=== PATIENT | male | born 1985 | race Caucasian/White ===

== ENCOUNTER 2019-07-02 10:30 | Emergency (ER) | payer MEDICAID ==
[~2019-07-02] VITALS: Ht 175.3 cm; Wt 95.3 kg
[2019-07-02 10:43] VITALS: BP 134/85
[2019-07-02] MEDS ORDERED: POLY10DR3 EACHEYE (10:45)
--- NOTE | 2019-07-02 10:45 | PHYS DOC ---
Adult General Chief Complaint Chief Complaint: EYE PROBLEMS [facility] HPI Patient is a 33 year old Male who presents with right leg redness and swelling with pain 5 out of 10 times one day. Patient denies injury to the eye. Review of Systems Review of Systems Constitutional: Denies fever or chills [] Eyes: Denies change in visual acuity, conjunctiva redness, or eye lid eye pain, eye discharge[] HENT: Denies nasal congestion or sore throat [] Respiratory: Denies cough or shortness of breath [] Cardiovascular: No additional information not addressed in HPI [] GI: Denies abdominal pain, nausea, vomiting, bloody stools or diarrhea [] : Denies dysuria or hematuria [] Musculoskeletal: Denies back pain or joint pain [] Integument: Denies rash or skin lesions [] Neurologic: Denies headache, focal weakness or sensory changes [] Endocrine: Denies polyuria or polydipsia [] All other systems were reviewed and found to be within normal limits, except as documented in this note. Physical Exam Physical Exam Constitutional: Well developed, well nourished, no acute distress, non-toxic appearance. [] HENT: Normocephalic, atraumatic, bilateral external ears normal, oropharynx moist, no oral exudates, nose normal. [] Eyes: PERRLA, EOMI, conjunctiva pink/reddened, white/clear discharge, 1+ swelling. [] Neck: Normal range of motion, no tenderness, supple, no stridor. [] Cardiovascular:Heart rate regular rhythm, no murmur [] Lungs & Thorax: Bilateral breath sounds clear to auscultation [] Abdomen: Bowel sounds normal, soft, no tenderness, no masses, no pulsatile masses. [] Skin: Warm, dry, no erythema, no rash. [] Back: No tenderness, no CVA tenderness. [] Extremities: No tenderness, no cyanosis, no clubbing, ROM intact, no edema. [] Neurologic: Alert and oriented X 3, normal motor function, normal sensory function, no focal deficits noted. [] Psychologic: Affect normal, judgement normal, mood normal. [] EKG EKG [] Radiology/Procedures Radiology/Procedures [] Course & Med Decision Making Course & Med Decision Making Patient is a 33 year old Male who presents with right leg redness and swelling with pain 5 out of 10 times one day. Patient denies injury to the eye. Alert and oriented. Vital signs within normal limits. Patient has not had any recent illness. Right eyelid is reddened and swollen 1+ and tender with palpation. Conjunctiva is pink in color. Patient states he awakens with discharge around his eye and the eyelashes. Afebrile. Patient denies any visual changes. Patient denies any injury or getting anything in the eye. Patient denies any pain of the actual eye but on the eyelid around the eye states hurts. She states the eye does itch. Alert and oriented. Patient Is given eyedrops and diagnosed with conjunctivitis. Patient to follow up with primary care provider or return to the ER if not getting better. Dragon Disclaimer Dragon Disclaimer This electronic medical record was generated, in whole or in part, using a voice recognition dictation system. Departure Departure Impression: Primary Impression: Conjunctivitis Disposition: HOME, SELF-CARE Condition: STABLE Patient Instructions: Conjunctivitis (Viral and Bacterial) Additional Instructions: Follow-up with primary care provider. Return to the ER or follow primary care provider if not getting better in the next 4-5 days. Scripts Polymyxin B Sulf/Trimethoprim (POLYMYXIN B-TMP EYE DROPS) 10 Ml Drops 1 DROP EACHEYE QID for 7 Days, #10 ML Prov: BOB DIAZ APRN 07/02/19 Problem Qualifiers Primary Impression: Conjunctivitis Conjunctivitis type: acute Acute conjunctivitis type: unspecified Laterality: right Qualified Codes: H10.31 - Unspecified acute conjunctivitis, right eye BOB DIAZ APRN Jul 02, 2019 10:45
== END 2019-07-02 11:03 | disposition home or self-care (01) ==
LOC: ER 10:30
DX: H10.31 Unspecified acute conjunctivitis, right eye (principal)
CPT/HCPCS: 99283

== ENCOUNTER 2020-02-16 09:08 | Emergency (ER) | payer MEDICAID ==
[~2020-02-16] VITALS: Ht 175.3 cm; Wt 103.0 kg
[~2020-02-16 09:08] MED LIST: POLY10DR3 EACHEYE
[2020-02-16 09:09] VITALS: BP 129/85
[2020-02-16] MEDS ORDERED: ACET-704 PO (09:24)
[2020-02-16] MEDS ORDERED: PENI500T PO (09:24)
--- NOTE | 2020-02-16 09:25 | PHYS DOC ---
Past Medical History Past Medical History: Anxiety, Depression, Hypertension Past Surgical History: No Surgical History Smoking Status: Current Every Day Smoker Alcohol Use: None Drug Use: None Adult General Chief Complaint Chief Complaint: DENTAL PROBLEM HPI HPI Patient is a 34 year old male presenting to the ED with a chief complaint of dental pain. Patient states that he has pain in the right lower jaw. Patient states that he does not have a dentist does not have a primary care physician either. Patient states that the pain was worse today and so came into the ER for antibiotic treatment. Patient denies fever, difficulty with swallowing. Review of Systems Review of Systems Patient denies fever, chills, nausea, vomiting, diarrhea, dysuria, chest pain, abdominal pain, shortness of breath. All other systems were reviewed and found to be within normal limits, except as documented in this note. Allergies Allergies Allergies Coded Allergies Type Severity Reaction Last Updated Verified No Known Drug Allergies 07/02/19 No Physical Exam Physical Exam Constitutional: Well developed, well nourished, no acute distress, non-toxic appearance. [] HENT: Normocephalic, atraumatic, dental caries in the right lower jaw Eyes: PERRLA, EOMI Neck: Normal range of motion Cardiovascular:Heart rate regular rhythm, no murmur [] Lungs & Thorax: Bilateral breath sounds clear to auscultation [] Abdomen: Bowel sounds normal, soft, no tenderness Extremities: No tenderness, ROM intact Neurologic: Alert and oriented X 3 Current Patient Data Vital Signs Vital Signs Date Time Temp Pulse Resp B/P (MAP) Pulse Ox O2 Delivery O2 Flow Rate FiO2 02/16/20 09:09 97.9 99 16 129/85 (100) 98 Room Air 97.9 EKG EKG [] Radiology/Procedures Radiology/Procedures [] Course & Med Decision Making Course & Med Decision Making Patient will be treated with oral antibiotics and pain medication. Patient is instructed to follow-up with dentist as soon as possible. Vital signs are stable. Discussed plan of care with patient. Patient is instructed to follow up with PCP in one to 2 days. Appropriate discharge instructions given to patient to return to the ED or to seek immediate medical evaluation. Patient is instructed to return to the ED if symptoms worsen or if any concerns. Dragon Disclaimer Dragon Disclaimer This electronic medical record was generated, in whole or in part, using a voice recognition dictation system. Departure Departure Impression: Primary Impression: Dental caries Disposition: HOME, SELF-CARE Condition: STABLE Referrals: NO PCP (PCP) Patient Instructions: Dental Caries Additional Instructions: Discussed plan of care with patient. Patient is instructed to follow up with PCP and dentist in one to 2 days. Appropriate discharge instructions given to patient to return to the ED or to seek immediate medical evaluation. Patient is instructed to return to the ED if symptoms worsen or if any concerns. Scripts Acetaminophen With Codeine (TYLENOL WITH CODEINE #3 TABLET) 1 Each Tablet 1 TAB PO PRN BID PRN for pain MDD 2 Tablet(s) for 5 Days, #15 TAB 0 Refills Prov: TITUS MELENDEZ DO 02/16/20 Penicillin V Potassium (PENICILLIN V POTASSIUM) 500 Mg Tablet 1 TAB PO QID for 10 Days, #40 TAB Prov: TITUS MELENDEZ DO 02/16/20 TITUS MELENDEZ DO Feb 16, 2020 09:25
== END 2020-02-16 09:30 | disposition home or self-care (01) ==
LOC: ER 09:08
DX: K02.9 Dental caries, unspecified (principal); K08.89 Other specified disorders of teeth and supporting structures; R68.84 Jaw pain; I10 Essential (primary) hypertension; F17.200 Nicotine dependence, unspecified, uncomplicated
CPT/HCPCS: 99283

== ENCOUNTER 2020-08-22 08:10 | Emergency (ER) | payer MEDICAID ==
[~2020-08-22] VITALS: Ht 175.3 cm; Wt 102.0 kg
[~2020-08-22 08:10] MED LIST changes: +ACET-704 PO; +PENI500T PO
--- NOTE | 2020-08-22 09:32 | ED.ADGEN ---
Past Medical History Past Medical History: Anxiety, Depression, Gallstones, Hypertension Past Surgical History: No Surgical History Smoking Status: Current Every Day Smoker Alcohol Use: Occasionally Drug Use: None Adult General Chief Complaint Chief Complaint: FLANK PAIN HPI HPI Patient is a 34 year old male coming in with left flank pain was last night. Said he was sitting watching the game when it started. Took [id number] medications with some improvement. Has had diarrhea but denies any urinary changes or testicular pain. No other complaints, otherwise been well. Denies any recent traumas or heavy lifting. Says he has a history of occasional back pain but this pain is more lateral. Review of Systems Review of Systems Constitutional: Denies fever or chills. [] Eyes: Denies change in visual acuity. [] HENT: Denies nasal congestion or sore throat. [] Respiratory: Denies cough or shortness of breath. [] Cardiovascular: Denies chest pain or edema. [] GI: Denies abdominal pain, nausea, vomiting, bloody stools but has had diarrhea. [] : Denies dysuria. [] Musculoskeletal: Denies back pain or joint pain. Has flank pain [] Integument: Denies rash. [] Neurologic: Denies headache, focal weakness or sensory changes. [] Endocrine: Denies polyuria or polydipsia. [] Lymphatic: Denies swollen glands. [] Psychiatric: Denies depression or anxiety. [] Allergies Allergies Allergies Coded Allergies Type Severity Reaction Last Updated Verified trazodone Allergy Severe "TONGUE SWELLING" 08/22/20 Yes Physical Exam Physical Exam Constitutional: Well developed, well nourished, no acute distress, non-toxic appearance. [] HENT: Normocephalic, atraumatic, bilateral external ears normal, oropharynx moist, no oral exudates, nose normal. [] Eyes: PERRLA, EOMI, conjunctiva normal, no discharge. [] Neck: Normal range of motion, no tenderness, supple, no stridor. [] Cardiovascular:Heart rate regular rhythm, no murmur [] Lungs & Thorax: Bilateral breath sounds clear to auscultation [] Abdomen: Bowel sounds normal, soft, no tenderness, no masses, no pulsatile masses. [] Skin: Warm, dry, no erythema, no rash. [] Back: No tenderness, no CVA tenderness. [] Extremities: No tenderness, no cyanosis, no clubbing, ROM intact, no edema. [] Neurologic: Alert and oriented X 3, normal motor function, normal sensory functi on, no focal deficits noted. [] Psychologic: Affect normal, judgement normal, mood normal. [] Current Patient Data Vital Signs Vital Signs Date Time Temp Pulse Resp B/P (MAP) Pulse Ox O2 Delivery O2 Flow Rate FiO2 08/22/20 09:00 98.0 81 16 115/71 (86) 98 Room Air 98.0 Lab Values Laboratory Tests Test 08/22/20 09:00 08/22/20 09:28 Urine Collection Type Unknown Urine Color Yellow Urine Clarity Clear Urine pH 5.5 (<5.0-8.0) Urine Specific [place] 1.010 (1.000-1.030) Urine Protein Negative mg/dL (NEG-TRACE) Urine Glucose (UA) Negative mg/dL (NEG) Urine Ketones (Stick) Negative mg/dL (NEG) Urine Blood Negative (NEG) Urine Nitrite Negative (NEG) Urine Bilirubin Negative (NEG) Urine Urobilinogen Dipstick 0.2 mg/dL (0.2 mg/dL) Urine Leukocyte Esterase Negative (NEG) Urine RBC 0 /HPF (0-2) Urine WBC 0 /HPF (0-4) Urine Squamous Epithelial Cells Occ /LPF Urine Bacteria 0 /HPF (0-FEW) White Blood Count 10.8 x10^3/uL (4.0-11.0) Red Blood Count 5.36 x10^6/uL (4.30-5.70) Hemoglobin 15.5 g/dL (13.0-17.5) Hematocrit 44.2 % (39.0-53.0) Mean Corpuscular Volume 82 fL (79-100) Mean Corpuscular Hemoglobin 29 pg (25-35) Mean Corpuscular Hemoglobin Concent 35 g/dL (31-37) Red Cell Distribution Width 13.5 % (11.5-14.5) Platelet Count 280 x10^3/uL (140-400) Neutrophils (%) (Auto) 67 % (31-73) Lymphocytes (%) (Auto) 22 % (24-48) L Monocytes (%) (Auto) 9 % (0-9) Eosinophils (%) (Auto) 1 % (0-3) Basophils (%) (Auto) 0 % (0-3) Neutrophils # (Auto) 7.3 x10^3/uL (1.8-7.7) Lymphocytes # (Auto) 2.4 x10^3/uL (1.0-4.8) Monocytes # (Auto) 1.0 x10^3/uL (0.0-1.1) Eosinophils # (Auto) 0.1 x10^3/uL (0.0-0.7) Basophils # (Auto) 0.0 x10^3/uL (0.0-0.2) Sodium Level 137 mmol/L (136-145) Potassium Level 3.9 mmol/L (3.5-5.1) Chloride Level 101 mmol/L (98-107) Carbon Dioxide Level 27 mmol/L (21-32) Anion Gap 9 (6-14) Blood Urea Nitrogen 9 mg/dL (8-26) Creatinine 1.0 mg/dL (0.7-1.3) Estimated GFR (Cockcroft-Gault) 86.1 BUN/Creatinine Ratio 9 (6-20) Glucose Level 87 mg/dL (70-99) Calcium Level 9.1 mg/dL (8.5-10.1) Total Bilirubin 1.0 mg/dL (0.2-1.0) Aspartate Amino Transferase (AST) 23 U/L (15-37) Alanine Aminotransferase (ALT) 37 U/L (16-63) Alkaline Phosphatase 119 U/L (46-116) H Total Protein 7.7 g/dL (6.4-8.2) Albumin 3.7 g/dL (3.4-5.0) Albumin/Globulin Ratio 0.9 (1.0-1.7) L Laboratory Tests 08/22/20 09:28 Laboratory Tests 08/22/20 09:28 EKG EKG [] Radiology/Procedures Radiology/Procedures [] Course & Med Decision Making Course & Med Decision Making Pertinent Labs and Imaging studies reviewed. (See chart for details) [] Dragon Disclaimer Dragon Disclaimer This electronic medical record was generated, in whole or in part, using a voice recognition dictation system. Departure Departure Impression: Primary Impression: Diverticulitis large intestine w/o perforation or abscess w/o bleeding Disposition: 01 HOME, SELF-CARE Condition: STABLE Referrals: NO PCP (PCP) Patient Instructions: Diverticulitis Additional Instructions: Follow-up with a primary care provider from list provided Scripts Ciprofloxacin Hcl (CIPRO) 500 Mg Tablet 1 TAB PO BID for 10 Days, #20 TAB 0 Refills Prov: SHER GONZALEZ MD 08/22/20 Metronidazole (METRONIDAZOLE) 500 Mg Tablet 1 TAB PO TID for 10 Days, #30 TAB 0 Refills Prov: SHER GONZALEZ MD 08/22/20 SHER GONZALEZ MD Aug 22, 2020 09:32
[2020-08-22 09:57] LABS: BASO % 0 % (0-3); EOS # 0.1 x10^3/uL (0.0-0.7); EOS % 1 % (0-3); HEMATOCRIT 44.2 % (39.0-53.0); HEMOGLOBIN 15.5 g/dL (13.0-17.5); LYMPH # 2.4 x10^3/uL (1.0-4.8); LYMPH % 22 % (24-48); MEAN CORPUSCULAR HEMOGLOBIN 29 pg (25-35); MEAN CORPUSCULAR HGB CONC 35 g/dL (31-37); MEAN CORPUSCULAR VOLUME 82 fL (79-100); MONO % 9 % (0-9); NEUT # 7.3 x10^3/uL (1.8-7.7); NEUT % 67 % (31-73); PLATELET COUNT 280 x10^3/uL (140-400); RED BLOOD COUNT 5.36 x10^6/uL (4.30-5.70); RED CELL DISTRIBUTION WIDTH 13.5 % (11.5-14.5); WHITE BLOOD COUNT 10.8 x10^3/uL (4.0-11.0)
[2020-08-22 10:10] LABS: CALCIUM 9.1 mg/dL (8.5-10.1); GFR 86.1; POTASSIUM 3.9 mmol/L (3.5-5.1)
[2020-08-22 10:13] LABS: ALBUMIN 3.7 g/dL (3.4-5.0); ALBUMIN/GLOBULIN RATIO 0.9 (1.0-1.7); TOTAL PROTEIN 7.7 g/dL (6.4-8.2)
[2020-08-22 10:15] LABS: BILIRUBIN,URINE NEGATIVE (NEG); CLARITY,URINE CLEAR; COLOR,URINE YELLOW; NITRITE,URINE NEGATIVE (NEG); PH,URINE 5.5 (<5.0-8.0); PROTEIN,URINE NEGATIVE (NEG-TRACE); UROBILINOGEN,URINE 0.2 mg/dL (0.2 mg/dL)
--- NOTE | 2020-08-22 10:17 | RAD ---
CT ABDOMEN PELVIS WO CONTRAST History: Reason: left flank pain / Spl. Instructions: / History: Technique: Noncontrast examination of the abdomen and pelvis. Coronal and sagittal reconstructions were performed. Exposure: One or more of the following individualized dose reduction techniques were utilized for this examination: 1. Automated exposure control 2. Adjustment of the mA and/or kV according to patient size 3. Use of iterative reconstruction technique. Comparison: None Findings: Lower chest: Tiny pleural effusions. No consolidation. Linear bibasilar atelectasis. Abdomen and pelvis: The liver, spleen, adrenal glands, and pancreas are unremarkable. Cholelithiasis. Contracted gallbladder. No biliary ductal dilatation. Unremarkable noncontrast appearance of the kidneys. No renal, ureteral or urinary bladder calculus. Focal descending colonic wall thickening with inflammatory changes adjacent to inflamed diverticulum, compatible with diverticulitis. No perforation. No abscess. Normal appendix. No evidence of bowel obstruction. No pathologic lymphadenopathy. No ascites. Small fat-containing right inguinal hernia. Rounded densities within the posterior gluteal subcutaneous tissues, may relate to prior medication injection sites. Bones: Right proximal femur sclerotic lesion, likely bone island. Chronic lower thoracic anterior vertebral body wedging. Impression: 1. Acute descending colonic diverticulitis. No perforation or abscess. 2. Cholelithiasis. 3. Tiny bilateral pleural effusions. Electronically signed by: Giovanny Pantoja DO (08/22/2020 10:15 AM) [id number]
[2020-08-22 10:22] LABS: RBC,URINE 0 /HPF (0-2); WBC,URINE 0 /HPF (0-4)
[2020-08-22 10:23] LABS: BACTERIA,URINE 0 /HPF (0-FEW)
[2020-08-22 10:26] VITALS: BP 120/74
[2020-08-22] MEDS ORDERED: METR-34 PO (10:42)
[2020-08-22] MEDS ORDERED: CIPR500T94 PO (10:42)
== END 2020-08-22 10:50 | disposition home or self-care (01) ==
LOC: ER 08:10
DX: K57.32 Diverticulitis of large intestine without perforation or abscess without bleeding (principal); I10 Essential (primary) hypertension; F17.200 Nicotine dependence, unspecified, uncomplicated; Z88.8 Allergy status to other drugs, medicaments and biological substances
CPT/HCPCS: 36415; 74176; 80053; 81001; 85025; 99284

== ENCOUNTER 2021-03-04 07:56 | Emergency (ER) | payer MEDICAID ==
[~2021-03-04] VITALS: Ht 175.3 cm; Wt 109.5 kg
[~2021-03-04 07:56] MED LIST changes: +CIPR500T94 PO; +METR-34 PO
[2021-03-04 08:09] VITALS: BP 135/81
--- NOTE | 2021-03-04 08:12 | PHYS DOC ---
Past Medical History Past Medical History: Anxiety, Depression, Gallstones, Hypertension Past Surgical History: No Surgical History Smoking Status: Current Every Day Smoker Alcohol Use: Occasionally Drug Use: None General Adult EDM: Chief Complaint: DENTAL PROBLEM HPI: HPI: Patient is a 35 year old male who presented to ER due to 2-day history of left upper jaw swelling and pain. Patient said he has history of bad dental decay, not able to see the dentist until next month. Patient denies any fever, no headache, no neck pain. Review of Systems: Review of Systems: Constitutional: Denies fever or chills. [] Eyes: Denies change in visual acuity. [] HENT: Denies nasal congestion or sore throat. Positive for dental pain, mouth pain and swelling. Respiratory: Denies cough or shortness of breath. [] Cardiovascular: Denies chest pain or edema. [] GI: Denies abdominal pain, nausea, vomiting, bloody stools or diarrhea. [] : Denies dysuria. [] Musculoskeletal: Denies back pain or joint pain. [] Integument: Denies rash. [] Neurologic: Denies headache, focal weakness or sensory changes. [] Endocrine: Denies polyuria or polydipsia. [] Lymphatic: Denies swollen glands. [] Psychiatric: Denies depression or anxiety. [] Heart Score: C/O Chest Pain: N/A Risk Factors: Risk Factors: DM, Current or recent (<one month) smoker, HTN, HLP, family history of CAD, obesity. Risk Scores: Score 0 - 3: 2.5% MACE over next 6 weeks - Discharge Home Score 4 - 6: 20.3% MACE over next 6 weeks - Admit for Clinical Observation Score 7 - 10: 72.7% MACE over next 6 weeks - Early Invasive Strategies Allergies: Allergies: Allergies Coded Allergies Type Severity Reaction Last Updated Verified trazodone Allergy Severe "TONGUE SWELLING" 08/22/20 Yes Physical Exam: PE: Constitutional: Well developed, well nourished, no acute distress, non-toxic appearance. [] HENT: Normocephalic, atraumatic, bilateral external ears normal, oropharynx moist, no oral exudates, nose normal. Widespread dental decay, left upper 1st and 2nd molars with teeth erosed to gumline, swelling, tender, no trismus, no palpable abscess. left upper jaw swelling. Eyes: PERRLA, EOMI, conjunctiva normal, no discharge. [] Neck: Normal range of motion, no tenderness, supple, no stridor. [] Cardiovascular:Heart rate regular rhythm, no murmur [] Lungs & Thorax: Bilateral breath sounds clear to auscultation [] Neurologic: Alert and oriented X 3, normal motor function, normal sensory function, no focal deficits noted. [] Psychologic: Affect normal, judgement normal, mood normal. [] EKG: EKG: [] Radiology/Procedures: Radiology/Procedures: [] Course & Med Decision Making: Course & Med Decision Making Pertinent Labs and Imaging studies reviewed. (See chart for details) [] Dragon Disclaimer: NormOxys Disclaimer: This electronic medical record was generated, in whole or in part, using a voice recognition dictation system. Departure Departure Impression: Primary Impression: Dental caries Additional Impression: Pain due to dental caries Disposition: 01 HOME / SELF CARE / HOMELESS Condition: STABLE Referrals: NO PCP (PCP) follow up with a dentist for further evaluation and treatment Patient Instructions: Dental Caries, Dental Pain Additional Instructions: [facility] [address] [place] [address] [facility] [address] [place] [address] [facility] [address] [place] [address] [facility] [address] [place] [address] [facility] [address] [place] [address] [facility] [address] [place] [address] [facility] [address] [place] [address] [facility] [address] [place] [address] [facility] [address] [place] [address] [facility] [address] [place] [address] Scripts Ibuprofen (Ibu) 800 Mg Tablet 1 TAB PO Q8HRS PRN for PAIN, #30 TAB 0 Refills Prov: KIM BRANDT DO 03/04/21 Amoxicillin (AMOXICILLIN) 500 Mg Capsule 1 CAP PO TID for 10 Days, #30 CAP Prov: KIM BRANDT DO 03/04/21 KIM BRANDT DO Mar 04, 2021 08:12
[2021-03-04] MEDS ORDERED: KETOROLAC 60 MG/2 ML VIAL. IM ONE (08:15)
[2021-03-04] MEDS ORDERED: AMOXICILLIN 250 MG CAPSULE. PO ONE (08:15)
[2021-03-04] MEDS ORDERED: AMOX500C PO (08:16)
[2021-03-04] MEDS ORDERED: IBUP-577 PO (08:16)
== END 2021-03-04 08:36 | disposition home or self-care (01) ==
LOC: ER 07:56
DX: K02.9 Dental caries, unspecified (principal); K08.89 Other specified disorders of teeth and supporting structures; R60.0 Localized edema; F41.9 Anxiety disorder, unspecified; F32.9 Major depressive disorder, single episode, unspecified; I10 Essential (primary) hypertension; F17.200 Nicotine dependence, unspecified, uncomplicated; Z87.442 Personal history of urinary calculi; Z88.8 Allergy status to other drugs, medicaments and biological substances
CPT/HCPCS: 96372; 99283; J1885